=== PATIENT | male | born 1970 | race American Indian/Alaskan Native ===

== ENCOUNTER 2018-10-10 12:18 | Emergency (ER) | payer SELFPAY ==
--- NOTE | 2018-10-10 12:26 | Event Note ---
ED Screening Note ED Screening Note: PMH HTN HPLD DM- BOARDERLINE RX ASA LISINOPRIL HCTZ NORVASC CHOL RX METFORMIN ASA NO TRAUMA NO HX GOUT NO DM L GREAT TOE PAIN FOR 2 DAYS OTC CREAM NOT HELPING This initial assessment/diagnostic orders/clinical plan/treatment(s) is/are subject to change based on patients health status, clinical progression and re- assessment by fellow clinical providers in the ED. Further treatment and workup at subsequent clinical providers discretion. Patient/guardian urged not to elope from the ED as their condition may be serious if not clinically assessed and managed. Initial orders include: XRAY
[2018-10-10 12:27] VITALS: BP 157/94
[2018-10-10] MEDS ORDERED: IBUPROFEN PO ONE (12:27)
--- NOTE | 2018-10-10 13:15 | XRay Report ---
LEFT FOOT 3 VIEWS INDICATION / CLINICAL INFORMATION: PROX GREAT TO PAIN WO TRAUMA; NO HX GOUT. COMPARISON: None available. FINDINGS: Mild degenerative change in the first metatarsophalangeal joint. No other significant skeletal abnorm ality. Signer Name: Louis Rossi MD FACR Signed: 10/10/2018 1:11 PM Workstation Name: [id number]
--- NOTE | 2018-10-10 14:45 | Emergency Department Report ---
ED Lower Extremity HPI - General Chief Complaint: Extremity Injury, Lower Stated Complaint: LFT TOE BONE/LFT FOOT ACHES Time Seen by Provider: 10/10/18 12:24 Source: patient Mode of arrival: Ambulatory Limitations: No Limitations - History of Present Illness Initial Comments: This is a 47-year-old -Spanish male who presents to the emergency room with left great toe pain for 2 days. Past medical history of hypertension, hyperlipidaemia, and prediabetes. Patient states he is applying topical analgesic with no improvement of symptoms. Denies injury, swelling, bruising, weakness, or numbness or tingling. MD Complaint: foot injury (left great toe pain) Onset/Timin -: days(s) Injury: Toes: Left (1st digit) Type of Injury: unknown Place: home Severity: severe Severity scale (0 -10): 10 Improves With: nothing Worsens With: weight bearing, movement Context: walking Associated Symptoms: able to partially bear weight, ambulatory. denies: snap/pop sensation, swelling, numbness, tingling Treatments Prior to Arrival: cold therapy - Related Data Previous Rx's Medication Instructions Recorded Last Taken Type Ibuprofen [Motrin 600 MG tab] 600 mg PO Q8H PRN #20 tablet 10/10/18 Unknown Rx Menthol/Camphor [[place] 18 gm TP QID #1 oint...g. 10/10/18 Unknown Rx Ointment] Allergies Allergy/AdvReac Type Severity Reaction Status Date / Time Penicillins Allergy Unknown Verified 10/10/18 12:20 ED Review of Systems ROS: Stated complaint: LFT TOE BONE/LFT FOOT ACHES Other details as noted in HPI Constitutional: denies: chills, fever Respiratory: denies: cough, shortness of breath, wheezing Cardiovascular: denies: chest pain, palpitations Gastrointestinal: denies: abdominal pain, nausea, diarrhea Musculoskeletal: arthralgia (left great toe pain). denies: back pain, joint swelling Skin: denies: rash, lesions Neurological: denies: headache, weakness, paresthesias Psychiatric: denies: anxiety, depression ED Past Medical Hx - Past Medical History Previous Medical History?: No - Surgical History Past Surgical History?: No - Social History Smoking Status: Former Smoker Substance Use Type: None - Medications Home Medications: Home Medications Medication Instructions Recorded Confirmed Last Taken Type Ibuprofen [Motrin 600 MG tab] 600 mg PO Q8H PRN #20 tablet 10/10/18 Unknown Rx Menthol/Camphor [[place] 18 gm TP QID #1 oint...g. 10/10/18 Unknown Rx Ointment] ED Physical Exam - General Limitations: No Limitations General appearance: alert, in no apparent distress, obese - Respiratory Respiratory exam: Present: normal lung sounds bilaterally. Absent: respiratory distress - Cardiovascular Cardiovascular Exam: Present: regular rate, normal rhythm. Absent: systolic murmur, diastolic murmur, rubs, gallop - GI/Abdominal GI/Abdominal exam: Present: soft, normal bowel sounds - Expanded Lower Extremity Exam Left Upper Leg exam: Present: normal inspection, full ROM Knee exam: Present: normal inspection, full ROM Lower Leg exam: Present: normal inspection, full ROM Ankle exam: Present: normal inspection, full ROM Foot/Toe exam: Present: full ROM, tenderness (plantar metatarsal of 1st phalanx). Absent: swelling, abrasion, laceration, ecchymosis, deformity, crepidus, dislocation, erythema, amputation, puncture wound, foreign body, calcaneal tenderness, tenderness at base of 5th metatarsal, nail avulsion, subungual hematoma Neuro vascular tendon exam: Present: no vascular compromise Gait: Positive: observed and limited by pain - Neurological Exam Neurological exam: Present: alert, oriented X3, normal gait - Psychiatric Psychiatric exam: Present: normal affect, normal mood - Skin Skin exam: Present: warm, dry, intact, normal color. Absent: rash ED Course Vital Signs 10/10/18 12:24 Temperature 99 F Pulse Rate 85 Respiratory 16 Rate Blood Pressure 157/94 O2 Sat by Pulse 99 Oximetry ED Lower Extremity MDM - Radiology Data Radiology results: report reviewed LEFT FOOT 3 VIEWS INDICATION / CLINICAL INFORMATION: PROX GREAT TO PAIN WO TRAUMA; NO HX GOUT. COMPARISON: None available. FINDINGS: Mild degenerative change in the first metatarsophalangeal joint. No other significant skeletal abnormality. - Medical Decision Making Patient was examined by me. Patient is nontoxic appearing and stable. Vitals are normal. Obtained x-ray of left foot. Given analgesics while in the ER. Mild degenerative change in the first metatarsophalangeal joint. No other significant skeletal abnormality. Start ibuprofen and [place] balm for pain. Follow up with primary care doctor for management of osteoarthritis. Patient discharged home in stable condition. Critical care attestation.: If time is entered above; I have spent that time in minutes in the direct care of this critically ill patient, excluding procedure time. ED Disposition Clinical Impression: Pain of left great toe Osteoarthritis Qualifiers: Osteoarthritis location: foot Osteoarthritis type: primary Laterality: left Qualified Code(s): M19.072 - Primary osteoarthritis, left ankle and foot Disposition: TO HOME OR SELFCARE Is pt being admited?: No Does the pt Need Aspirin: No Condition: Stable Instructions: Arthralgia (ED), Osteoarthritis (ED) Additional Instructions: Rest Use ice or heat on affected area for 20 minutes and off for 2 hours. Take pain medication as needed for pain. Follow up with Primary Care Provider in 2-3 days. Prescriptions: Ibuprofen [Motrin 600 MG tab] 600 mg PO Q8H PRN #20 tablet PRN Reason: Pain Menthol/Camphor [[place] Ointment] 18 gm TP QID #1 oint...g. Referrals: [facility] [Outside] - 3-5 Days [facility] [Outside] - 3-5 Days [facility], [facility] [Provider Group] - 3-5 Days [facility] [Provider Group] - 3-5 Days Forms: Work/School Release Form(ED), Accompanied Note Time of Disposition: 14:56
== END 2018-10-10 15:26 | disposition home or self-care (01) ==
LOC: ED 12:18
DX: M19.072 Primary osteoarthritis, left ankle and foot (principal); M79.675 Pain in left toe(s); Z87.891 Personal history of nicotine dependence; Z88.0 Allergy status to penicillin